=== PATIENT | female | born 1980 | race Caucasian/White ===

== ENCOUNTER 2018-10-04 15:24 | Emergency (ER) | payer MEDICAID ==
[~2018-10-04] VITALS: Ht 165.1 cm; Wt 83.5 kg
[2018-10-04 15:26] VITALS: BP_SYST 141
[2018-10-04] MEDS ORDERED: LORazepam 1 MG TABLET PO ONE (18:00)
[2018-10-04 18:51] VITALS: BP_SYST 134
== END 2018-10-04 18:51 | disposition home or self-care (01) ==
LOC: SED 15:24
DX: F41.9 Anxiety disorder, unspecified (principal); R03.0 Elevated blood-pressure reading, without diagnosis of hypertension; Z90.49 Acquired absence of other specified parts of digestive tract; Z88.1 Allergy status to other antibiotic agents; Z88.2 Allergy status to sulfonamides
CPT/HCPCS: 81025; 93005; 99283

== ENCOUNTER 2019-03-11 07:39 | Emergency (ER) | payer MEDICAID ==
[~2019-03-11] VITALS: Ht 165.1 cm; Wt 86.2 kg
--- NOTE | 2019-03-11 07:39 | NUR ---
BROUGHT BACK TO BED #7 AND TRIAGED. REPORT GIVEN TO RADHA
[2019-03-11 07:40] VITALS: BP_SYST 144
[2019-03-11] MEDS ORDERED: NACL 0.9% 1,000 ML IV ONE (08:00)
--- NOTE | 2019-03-11 08:01 | NUR ---
ER Dr. banerjee at bedside examining patient.
--- NOTE | 2019-03-11 08:02 | NUR ---
PATIENT CAME IN COMPLAINING OF HEAVY VAGINAL BLEEDING FOR PAST 2 DAYS. PATIENT STATES SHE SATURATED ONE LARGE TAMPON AND PAD IN AN HOUR. PATIENT STATES SHE HAS CLOTS WHEN USING RESTROOM. PATIENT STATES SHES HAD IRREGULAR PERIODS FOR LAST 2-3 YEARS. PATIENT COMPLAINING OF SOME DISCOMFORT IN LOWER ABD 2/10. PATIENT STATES SHE IS LETHARGIC AND HAS SOME TINGLING THROUGH OUT. PATIENT DENIES NAUSEA AND VOMITING. PATIENT IS ALERT AND ORIENTED X4.
--- NOTE | 2019-03-11 08:14 | NUR ---
# 20 gauge angiocath placed to left AC. Use of asceptic technique. Opsite placed over site. Blood return noted. Blood for lab drawn from site. Flushed with 10 cc of normal saline. No evidence of infiltration noted. Patient tolerated well. ube placement.
--- NOTE | 2019-03-11 08:25 | NUR ---
PATIENT LEFT TO ULTRA SOUND IN STABLE CONDITION.
[2019-03-11 08:36] LABS: BASOPHILS # (AUTO) 0.1 K/uL (0.0-0.2); BASOPHILS % (AUTO) 0.8 % (0.0-2.0); EOSINOPHILS % (AUTO) 0.4 % (0.0-4.0); HEMATOCRIT 32.2 % (36-48); HEMOGLOBIN 10.7 g/dL (12.0-16.0); LYMPHOCYTES # (AUTO) 1.6 K/uL (1.0-5.5); LYMPHOCYTES % (AUTO) 21.9 % (20.5-51.5); MEAN CORPUSCULAR HEMOGLOBIN 26 pg (27-31); MEAN CORPUSCULAR HGB CONC 33 % (32-36); MEAN CORPUSCULAR VOLUME 78 fL (79.0-98.0); MONOCYTES # (AUTO) 0.4 K/uL (0.0-1.0); NEUTROPHILS # (AUTO) 5.3 K/uL (1.8-7.7); NEUTROPHILS % (AUTO) 71.9 % (40.0-70.0); PLATELET COUNT (AUTO) 403 K/uL (130-430); RED BLOOD CELL COUNT(AUTO) 4.13 MIL/uL (4.2-6.2); RED CELL DISTRIBUTION WIDTH 15.9 % (9.0-15.0); WHITE BLOOD COUNT (AUTO) 7.3 K/uL (4.8-10.8)
[2019-03-11 08:43] LABS: CREATININE 0.83 mg/dL (0.55-1.30)
[2019-03-11 08:48] LABS: INR 0.9 (0.8-1.2)
[2019-03-11 08:49] LABS: ALBUMIN 3.5 g/dL (3.4-4.8); CALCIUM 9.1 mg/dL (8.4-11.0); TOTAL BILIRUBIN 0.2 mg/dL (0.0-1.0)
--- NOTE | 2019-03-11 09:19 | NUR ---
PATIENT BACK FROM [facility] IN STABLE CONDITION.
--- NOTE | 2019-03-11 10:22 | NUR ---
DR MONTESINOS AT BEDSIDE TALKING TO PATIENT.
--- NOTE | 2019-03-11 10:32 | NUR ---
Patient given written and verbal discharge instructions and verbalizes understanding. ER MD discussed with patient the results and treatment provided. Patient in stable condition. ID arm band removed. IV catheter removed intact and dressing applied, no active bleeding. Rx of PERMARIN given. Patient educated on pain management and to follow up with PMD. Pain Scale 0/10. Opportunity for questions provided and answered. Medication side effect fact sheet provided.
[2019-03-11 10:34] VITALS: BP_SYST 123
== END 2019-03-11 10:34 | disposition home or self-care (01) ==
LOC: SED 07:39
DX: D25.9 Leiomyoma of uterus, unspecified (principal); F41.9 Anxiety disorder, unspecified; Z88.0 Allergy status to penicillin; Z88.2 Allergy status to sulfonamides
CPT/HCPCS: 36415; 76830; 76857; 80053; 81025; 85025; 85610; 85730; 99284; J7030

== ENCOUNTER 2021-11-02 09:41 | Emergency (ER) | payer MEDICAID ==
[~2021-11-02] VITALS: Ht 165.1 cm; Wt 87.1 kg
[2021-11-02 09:44] VITALS: BP_SYST 141
[2021-11-02] MEDS ORDERED: HYDROcodone/ACETAMIN 10-325 MG TAB PO ONE (09:45)
[2021-11-02] MEDS ORDERED: KETOROLAC TROMETHAMINE 60 MG/2 ML VIAL IM ONE (09:45)
[2021-11-02 11:14] LABS: BASOPHILS % (AUTO) 0.5 % (0.0-2.0); EOSINOPHILS % (AUTO) 0.5 % (0.0-4.0); HEMATOCRIT 38.7 % (36-48); HEMOGLOBIN 13.2 g/dL (12.0-16.0); LYMPHOCYTES # (AUTO) 1.2 K/uL (1.0-5.5); LYMPHOCYTES % (AUTO) 21.5 % (20.5-51.5); MEAN CORPUSCULAR HEMOGLOBIN 29 pg (27-31); MEAN CORPUSCULAR HGB CONC 34 % (32-36); MEAN CORPUSCULAR VOLUME 84 fL (79.0-98.0); MONOCYTES # (AUTO) 0.3 K/uL (0.0-1.0); MONOCYTES % (AUTO) 4.4 % (1.7-9.3); NEUTROPHILS # (AUTO) 4.2 K/uL (1.8-7.7); NEUTROPHILS % (AUTO) 73.1 % (40.0-70.0); PLATELET COUNT (AUTO) 333 K/uL (130-430); RED BLOOD CELL COUNT(AUTO) 4.59 MIL/uL (4.2-6.2); RED CELL DISTRIBUTION WIDTH 13.6 % (9.0-15.0); WHITE BLOOD COUNT (AUTO) 5.7 K/uL (4.8-10.8)
[2021-11-02] MEDS ORDERED: MORPHINE 4 MG INJ. 4 MG/ML VIAL IM ONE ×2 (11:15→11:30)
[2021-11-02 11:17] LABS: ANION GAP 7 (5-15); CHLORIDE 105 mmol/L (98-107); CREATININE 0.73 mg/dL (0.55-1.30); GLUCOSE 98 mg/dL (70-99); SODIUM SERUM 140 mmol/L (136-145); UREA NITROGEN, BLOOD 12 mg/dL (8-21)
[2021-11-02 11:22] LABS: GFR AFRICAN AMERICAN 112 mL/min (>90)
[2021-11-02 11:23] LABS: ALANINE AMINOTRANSFERASE 28 U/L (12-78); ALBUMIN 3.6 g/dL (3.4-4.8); AMYLASE 66 U/L (0-100); ASPARTATE AMINOTRANSFERASE 16 U/L (10-37); LIPASE 139 U/L (73-393)
[2021-11-02 11:27] LABS: TOTAL BILIRUBIN < 0.1 mg/dL (0.0-1.0)
[2021-11-02 11:35] LABS: C-REACTIVE PROTEIN QUANT < 0.2 mg/dL (0-0.5)
[2021-11-02] MEDS ORDERED: HYDROmorphone 1 MG/ML INJ. CARTRIDGE IVP ONE (13:30)
[2021-11-02 15:32] LABS: BILIRUBIN,URINE NEGATIVE (NEGATIVE); BLOOD, URINE 1+ (NEGATIVE); CLARITY/URINE CLEAR (CLEAR); COLOR,URINE YELLOW (YELLOW); GLUCOSE,URINE NEGATIVE (NEGATIVE); KETONES,URINE NEGATIVE (NEGATIVE); LEUKOCYTE ESTERASE ,URINE 2+ (NEGATIVE); NITRITE, URINE NEGATIVE (NEGATIVE); PH,URINE 6.5 (5.0-8.0); PROTEIN URINE NEGATIVE (NEGATIVE); UROBILINOGEN,URINE 0.2 (0.2-1.0)
[2021-11-02 15:47] LABS: BACTERIA,URINE FEW /HPF (None Seen)
[2021-11-02 19:45] VITALS: BP_SYST 109
== END 2021-11-02 19:52 | disposition short-term general hospital (02) ==
LOC: SED 09:41
DX: M54.9 Dorsalgia, unspecified (principal); Z88.2 Allergy status to sulfonamides; Z88.1 Allergy status to other antibiotic agents; Z20.822 Contact with and (suspected) exposure to COVID-19
CPT/HCPCS: 36415; 74176; 76376; 76830; 76857; 80053; 81000; 82150; 83605; 83690; 85025; 86140; 87086; 87426; 96372; 96374; 99285; J1170; J1885; J2270

== ENCOUNTER 2022-08-06 19:03 | Emergency (ER) | payer MEDICAID ==
[~2022-08-06] VITALS: Ht 167.6 cm; Wt 77.1 kg
[2022-08-06] MEDS ORDERED: KETOROLAC TROMETHAMINE 60 MG/2 ML VIAL IM ONE (19:30)
[2022-08-06 19:31] VITALS: BP_SYST 150
[2022-08-06 20:26] LABS: BASOPHILS # (AUTO) 0.1 K/uL (0.0-0.2); BASOPHILS % (AUTO) 0.9 % (0.0-2.0); EOSINOPHILS % (AUTO) 0.5 % (0.0-4.0); HEMATOCRIT 39.3 % (36-48); HEMOGLOBIN 13.6 g/dL (12.0-16.0); LYMPHOCYTES # (AUTO) 1.9 K/uL (1.0-5.5); LYMPHOCYTES % (AUTO) 23.2 % (20.5-51.5); MEAN CORPUSCULAR HEMOGLOBIN 29 pg (27-31); MEAN CORPUSCULAR HGB CONC 35 % (32-36); MEAN CORPUSCULAR VOLUME 84 fL (79.0-98.0); MONOCYTES # (AUTO) 0.4 K/uL (0.0-1.0); MONOCYTES % (AUTO) 5.2 % (1.7-9.3); NEUTROPHILS # (AUTO) 5.9 K/uL (1.8-7.7); NEUTROPHILS % (AUTO) 70.2 % (40.0-70.0); PLATELET COUNT (AUTO) 364 K/uL (130-430); RED BLOOD CELL COUNT(AUTO) 4.67 MIL/uL (4.2-6.2); RED CELL DISTRIBUTION WIDTH 13.3 % (9.0-15.0); WHITE BLOOD COUNT (AUTO) 8.4 K/uL (4.8-10.8)
[2022-08-06] MEDS ORDERED: MORPHINE 4 MG INJ. 4 MG/ML VIAL IM ONE ×2 (20:30→22:30)
[2022-08-06 20:43] LABS: ANION GAP 9 (5-15); CALCIUM 9.1 mg/dL (8.4-11.0); CHLORIDE 101 mmol/L (98-107); CREATININE 0.58 mg/dL (0.55-1.30); GLUCOSE 102 mg/dL (70-99); UREA NITROGEN, BLOOD 15 mg/dL (8-21)
[2022-08-06 20:47] LABS: ALANINE AMINOTRANSFERASE 28 U/L (12-78); ALBUMIN 3.9 g/dL (3.4-4.8); AMYLASE 64 U/L (0-100); ASPARTATE AMINOTRANSFERASE 17 U/L (10-37); GFR AFRICAN AMERICAN 145 mL/min (>90); LIPASE 117 U/L (73-393); TOTAL BILIRUBIN 0.4 mg/dL (0.0-1.0)
[2022-08-06 20:48] LABS: C-REACTIVE PROTEIN QUANT < 0.2 mg/dL (0-0.5)
[2022-08-06 21:19] LABS: BILIRUBIN,URINE NEGATIVE (NEGATIVE); BLOOD, URINE 1+ (NEGATIVE); CLARITY/URINE CLEAR (CLEAR); COLOR,URINE YELLOW (YELLOW); GLUCOSE,URINE NEGATIVE (NEGATIVE); KETONES,URINE NEGATIVE (NEGATIVE); LEUKOCYTE ESTERASE ,URINE NEGATIVE (NEGATIVE); NITRITE, URINE NEGATIVE (NEGATIVE); PROTEIN URINE NEGATIVE (NEGATIVE); UROBILINOGEN,URINE 0.2 (0.2-1.0)
[2022-08-06 21:58] LABS: ACETONE, SERUM NEGATIVE (NEGATIVE)
[2022-08-06 22:00] LABS: BACTERIA,URINE MODERATE /HPF (None Seen); MUCUS,URINE None Seen /LPF (None Seen); RBC,URINE 0-3 /HPF (0-3); WBC,URINE 0-3 /HPF (0-3)
[2022-08-06] MEDS ORDERED: ONDANSETRON 4 MG ODT TAB PO ONE (22:30)
[2022-08-06] MEDS ORDERED: LIDOCAINE PATCH 5% 1 EA TP ONE (22:45)
[2022-08-06] MEDS ORDERED: methocarbamoL 500 MG TABLET PO ONE (22:45)
[2022-08-06] MEDS ORDERED: ACETAMINOPHEN 500 MG TABLET PO ONE (22:45)
[2022-08-07] MEDS ORDERED: METH-634 PO (00:32)
[2022-08-07] MEDS ORDERED: LIDOINT TP (00:32)
[2022-08-07] MEDS ORDERED: IBUP-1970 PO (00:32)
[2022-08-07] MEDS ORDERED: ACET325T53 PO (00:32)
[2022-08-07] MEDS ORDERED: OXYC-128 PO (00:40)
[2022-08-07 00:42] VITALS: BP_SYST 126
== END 2022-08-07 00:42 | disposition home or self-care (01) ==
LOC: SED 19:03
DX: S39.011A Strain of muscle, fascia and tendon of abdomen, initial encounter (principal); R11.0 Nausea; Z88.1 Allergy status to other antibiotic agents; Z88.2 Allergy status to sulfonamides; Z79.899 Other long term (current) drug therapy; X58.XXXA Exposure to other specified factors, initial encounter; Y93.89 Activity, other specified; Y92.89 Other specified places as the place of occurrence of the external cause; Y99.8 Other external cause status
CPT/HCPCS: 99285; 74176; 80053; 81000; 82009; 82150; 84703; 83690; 85025; 86140; 87086; 36415; 76376; 81025; 96372; 83605; Q0162; J1885; J2270

== ENCOUNTER 2023-11-05 09:06 | Emergency (ER) | payer MEDICAID ==
[~2023-11-05] VITALS: Ht 165.1 cm; Wt 86.2 kg
[~2023-11-05 09:06] MED LIST: ACET325T53 PO; IBUP-1970 PO; LIDOINT TP; METH-634 PO; OXYC-128 PO
[2023-11-05 09:07] VITALS: BP_SYST 134; PULSE 89; RESP 18; TEMP 97; O2SAT 100
[2023-11-05 09:49] LABS: BASOPHILS % (AUTO) 0.9 % (0.0-2.0); EOSINOPHILS # (AUTO) 0.1 K/uL (0.0-0.4); EOSINOPHILS % (AUTO) 1.1 % (0.0-4.0); HEMATOCRIT 38.9 % (36-48); HEMOGLOBIN 13.4 g/dL (12.0-16.0); LYMPHOCYTES # (AUTO) 1.7 K/uL (1.0-5.5); LYMPHOCYTES % (AUTO) 30.9 % (20.5-51.5); MEAN CORPUSCULAR HEMOGLOBIN 29 pg (27-31); MEAN CORPUSCULAR HGB CONC 34 % (32-36); MEAN CORPUSCULAR VOLUME 84 fL (79.0-98.0); MONOCYTES # (AUTO) 0.3 K/uL (0.0-1.0); MONOCYTES % (AUTO) 5.1 % (1.7-9.3); NEUTROPHILS # (AUTO) 3.5 K/uL (1.8-7.7); PLATELET COUNT (AUTO) 361 K/uL (130-430); RED CELL DISTRIBUTION WIDTH 13.3 % (9.0-15.0); WHITE BLOOD COUNT (AUTO) 5.6 K/uL (4.8-10.8)
[2023-11-05 09:52] LABS: BILIRUBIN,URINE NEGATIVE (NEGATIVE); BLOOD, URINE 2+ (NEGATIVE); CLARITY/URINE CLEAR (CLEAR); COLOR,URINE YELLOW (YELLOW); GLUCOSE,URINE NEGATIVE (NEGATIVE); KETONES,URINE NEGATIVE (NEGATIVE); LEUKOCYTE ESTERASE ,URINE NEGATIVE (NEGATIVE); NITRITE, URINE NEGATIVE (NEGATIVE); PROTEIN URINE NEGATIVE (NEGATIVE); UROBILINOGEN,URINE 0.2 (0.2-1.0)
[2023-11-05 10:04] LABS: CALCIUM 8.4 mg/dL (8.4-11.0); CREATININE 0.76 mg/dL (0.55-1.30); POTASSIUM 3.9 mmol/L (3.5-5.1)
[2023-11-05 10:08] LABS: ALBUMIN 3.4 g/dL (3.4-4.8); BILIRUBIN,DIRECT 0.1 mg/dL (0.0-0.3); TOTAL BILIRUBIN 0.3 mg/dL (0.0-1.0); TOTAL PROTEIN, SERUM 7.4 g/dL (6.4-8.3)
[2023-11-05 10:12] LABS: BACTERIA,URINE None Seen /HPF (None Seen); WBC,URINE 0-3 /HPF (0-3)
[2023-11-05] MEDS: NACL 0.9% 1,000 ML IV ONE (10:49)
[2023-11-05] MEDS: KETOROLAC TROMETHAMINE 30 MG VIAL IVP ONE (11:00)
[2023-11-05] MEDS: ONDANSETRON HCL 4 MG/2 ML VIAL IVP ONE (11:02)
[2023-11-05] MEDS: MORPHINE 4 MG INJ. 4 MG/ML VIAL IVP ONE (12:18)
[2023-11-05] MEDS ORDERED: AMPICILLIN SODIUM/SULBACTAM NA 3 GM VIAL ONE (12:32)
[2023-11-05] MEDS ORDERED: AUG875 PO (12:38)
[2023-11-05] MEDS ORDERED: HYDR-3917 PO (12:38)
[2023-11-05] MEDS: AMPICILLIN SODIUM/SULBACTAM NA 3 GM in NS 100 ML IV ONE (12:44)
[2023-11-05 13:20] VITALS: BP_SYST 145; PULSE 69; RESP 18; TEMP 97.9; O2SAT 100
== END 2023-11-05 13:21 | disposition home or self-care (01) ==
LOC: SED 09:06
DX: K57.32 Diverticulitis of large intestine without perforation or abscess without bleeding (principal); Z88.1 Allergy status to other antibiotic agents; Z88.2 Allergy status to sulfonamides
CPT/HCPCS: 99285; 74176; 96365; 96375; 96361; 80076; 80048; 81000; 81001; 83690; 85025; 36415; 81015; J0295; J1885; J2405; J2270; J7030

== ENCOUNTER 2024-01-18 19:12 | Emergency (ER) | payer MEDICAID ==
[~2024-01-18] VITALS: Ht 162.6 cm; Wt 87.1 kg
[~2024-01-18 19:12] MED LIST changes: +AUG875 PO; +HYDR-3917 PO
[2024-01-18 19:15] VITALS: BP_SYST 141; PULSE 87; RESP 19; TEMP 97.6; O2SAT 100
[2024-01-18] MEDS: KETOROLAC TROMETHAMINE 60 MG/2 ML VIAL IM ONE (20:53)
[2024-01-18] MEDS: KETOROLAC TROMETHAMINE 30 MG VIAL IM ONE (20:57)
[2024-01-18] MEDS ORDERED: AUG875 PO (21:34)
[2024-01-18] MEDS ORDERED: IBUP-1969 PO (21:34)
[2024-01-18] MEDS ORDERED: DICL20GE TP (21:34)
[2024-01-18] MEDS: AMOXICILLIN/POTASSIUM CLAV 875 MG TABLET PO ONE (21:52)
[2024-01-18 22:00] VITALS: BP_SYST 125; PULSE 80; RESP 20; TEMP 97.2; O2SAT 97
[2024-01-21] MEDS ORDERED: HYDR-3917 PO (01:08)
[2024-01-21] MEDS ORDERED: CLIN-142 PO (01:08)
[2024-01-21] MEDS ORDERED: DOXY100C5 PO (01:08)
== END 2024-01-18 22:00 | disposition home or self-care (01) ==
LOC: SED 19:12
DX: S00.86XA Insect bite (nonvenomous) of other part of head, initial encounter (principal); M54.2 Cervicalgia; Z88.2 Allergy status to sulfonamides; Z88.1 Allergy status to other antibiotic agents; Z79.899 Other long term (current) drug therapy; Z79.2 Long term (current) use of antibiotics; W57.XXXA Bitten or stung by nonvenomous insect and other nonvenomous arthropods, initial encounter; Y93.89 Activity, other specified; Y92.89 Other specified places as the place of occurrence of the external cause; Y99.8 Other external cause status
CPT/HCPCS: 99285; 70450; 86788; 86789; 36415; 72125; 81025; 96372; J1885